=== PATIENT | female | born 1990 | race Caucasian/White ===

== ENCOUNTER 2017-03-02 07:25 | Day surgery (SDC) | payer BC ==
[~2017-03-02 07:25] MED LIST: AMITRIPTYLINE H10 M1 PO
[2017-03-02 08:20] LABS: BASO % 0.2 % (0-2); EOS % 3.1 % (0-7); EOSINOPHIL ABSOLUTE COUNT 0.2 tho/cmm (0.0-0.7); HCT-HEMATOCRIT 38.8 % (34.0-49.0); HGB-HEMOGLOBIN 13.4 gm/dl (12.0-15.5); LYMPH % 36.6 % (20-45); LYMPH ABSOLUTE COUNT 2.4 tho/cmm (0.8-4.5); MCH (MEAN CORPUSCULAR HGB) 32.1 pg (28.0-32.0); MCHC MEAN CORPUSCULAR HGB CONC 34.5 % (32.0-36.0); MEAN PLATELET VOLUME 11.5 cmc (9.4-12.4); MONO % 8.8 % (0-12); MONOCYTE ABSOLUTE COUNT 0.6 tho/cmm (0.0-1.2); NEUTROPHIL ABSOLUTE COUNT 3.3 tho/cmm (1.6-8.0); NEUTROPHIL-AUTOMATED 3.3 tho/cmm (1.6-8.0); NEUTROPHILS % 51.3 % (40-80); PLATELET COUNT 160 tho/cmm (150-450); RED BLOOD COUNT 4.17 mil/cmm (4.00-5.20); RED CELL DISTRIBUTION WIDTH 11.7 % (12.4-16.4); WHITE BLOOD COUNT 6.5 tho/cmm (4.0-10.0)
== END 2017-03-02 13:45 ==
LOC: SRG 07:25 → SHSC 07:31 → ORE 09:38 → SHSC 11:20
PROVIDERS: Anesthesiology
PROC: 09SM0ZZ Reposition Nasal Septum, Open Approach (ICD-10-PCS; principal; 2017-03-02)
PROC: 09TL4ZZ Resection of Nasal Turbinate, Percutaneous Endoscopic Approach (ICD-10-PCS; 2017-03-02)
DX: J34.2 Deviated nasal septum (principal); J34.89 Other specified disorders of nose and nasal sinuses; J34.3 Hypertrophy of nasal turbinates; F41.9 Anxiety disorder, unspecified; Z87.891 Personal history of nicotine dependence; Z88.5 Allergy status to narcotic agent; Z88.8 Allergy status to other drugs, medicaments and biological substances; Z91.040 Latex allergy status; Z98.890 Other specified postprocedural states
CPT/HCPCS: J0171